=== PATIENT | male | born 1950 | race Native Hawaiian/Other Pacific Islander ===

== ENCOUNTER 2016-07-25 07:02 | Outpatient (CLI) | payer OTHER ==
[~2016-07-25] VITALS: Ht 2.5 cm; Wt 0.0 kg
[2016-07-25 07:50] LABS: PLATELET COUNT 231 K/uL (142-355)
[2016-07-25 10:14] LABS: POTASSIUM 4.3 mmol/L (3.6-5.2); SODIUM 136 mmol/L (136-145)
== END 2016-07-25 20:03 | disposition home or self-care (01) ==
LOC: INF 07:02 → LABW 07:02 → LAB 07:02 → INF 20:03
PROVIDERS: Dermatology
DX: L40.0 Psoriasis vulgaris (principal); Z79.899 Other long term (current) drug therapy; Z51.81 Encounter for therapeutic drug level monitoring
CPT/HCPCS: 36415; 80048; 80076; 82465; 83036; 84100; 84478; 85027; 90471; J3490

== ENCOUNTER 2017-10-10 06:07 | Outpatient (CLI) | payer OTHER ==
[2017-10-10 06:54] LABS: POTASSIUM 4.2 mmol/L (3.6-5.2)
[2017-10-10 11:33] LABS: PLATELET COUNT 291 K/uL (142-355)
== END 2017-10-10 22:27 | disposition home or self-care (01) ==
LOC: LABW 06:07
PROVIDERS: Dermatology
DX: R53.83 Other fatigue (principal); E11.9 Type 2 diabetes mellitus without complications; E78.4 Other hyperlipidemia; Z12.5 Encounter for screening for malignant neoplasm of prostate; Z79.899 Other long term (current) drug therapy; Z51.81 Encounter for therapeutic drug level monitoring
CPT/HCPCS: 36415; 80048; 80074; 80076; 82465; 83036; 84100; 84153; 84478; 85027

== ENCOUNTER 2018-05-21 13:40 | Outpatient (CLI) | payer OTHER | END 2018-05-21 20:37 | disposition home or self-care (01) | LOC: LABW 13:40 | DX: K59.1 Functional diarrhea (principal); K64.0 First degree hemorrhoids | CPT/HCPCS: 82272; 82705; 83630; 87015; 87045; 87324; 87328; 87329; 87449; 87899 ==

== ENCOUNTER 2019-02-09 17:50 | Emergency (ER) | payer OTHER ==
[~2019-02-09] VITALS: Ht 177.8 cm; Wt 83.9 kg
[2019-02-09 18:44] LABS: PLATELET COUNT 256 K/uL (142-355)
[2019-02-09 18:52] LABS: POTASSIUM 4.1 mmol/L (3.6-5.2)
[2019-02-09 19:12] VITALS: BP 139/66; TEMP 98
== END 2019-02-09 19:15 | disposition home or self-care (01) ==
LOC: ED 17:50
PROVIDERS: Family Medicine
DX: S60.562A Insect bite (nonvenomous) of left hand, initial encounter (principal); L03.114 Cellulitis of left upper limb; W57.XXXA Bitten or stung by nonvenomous insect and other nonvenomous arthropods, initial encounter; Y92.89 Other specified places as the place of occurrence of the external cause
CPT/HCPCS: 80053; 83605; 85027; 87040; 90471; 90715; 96365; 96375; 99284; J0696; J1885